=== PATIENT | male | born 1970 ===

== ENCOUNTER 2017-03-21 07:36 | Inpatient (IN) | payer SELFPAY ==
[2017-03-21] MEDS ORDERED: Sodium Chloride 0.9% 1,000 ML IV ONE (08:15)
[2017-03-21] MEDS ORDERED: DiphenhydrAMINE 50 mg/ml Inj IVP STA (08:16)
[2017-03-21] MEDS ORDERED: DiphenhydrAMINE 50 mg/ml Inj ONE (08:24)
[2017-03-21] MEDS ORDERED: Sodium Chloride 0.9% 1,000 ML ONE (08:24)
[2017-03-21 08:30] LABS: BASO % 0.5 % (0.0-2.0); EOS % 0.7 % (0.0-4.0); HEMATOCRIT 48.7 % (35.0-51.0); LYMPH # 0.6 K/uL (1.0-4.3); LYMPH % 7.8 % (20.0-40.0); MEAN CELL VOLUME 77.6 fL (80.0-94.0); MEAN CORPUSCULAR HEMOGLOBIN 25.9 pg (27.0-31.0); MEAN CORPUSCULAR HGB CONC 33.4 g/dL (33.0-37.0); MEAN PLATELET VOLUME 11.4 fL (7.2-11.7); MONO # 0.2 K/uL (0.0-0.8); MONO % 3.5 % (0.0-10.0); NRBC % 0.3 % (0.0-2.0); PLATELET COUNT 130 K/uL (130-400); RED CELL DISTRIBUTION WIDTH 15.1 % (11.5-14.5); WHITE BLOOD COUNT 7.1 K/uL (4.8-10.8)
--- NOTE | 2017-03-21 08:33 | C.PDOC ---
History Of Present Illness 46 year old male presents to ED with complaints of heroin withdrawal. Patient reports he uses 10 bags daily and last use was yesterday. He reports symptoms started late last night and reports abdominal cramping pain, vomiting, diarrhea , body aches and back pain. Patient is requesting suboxone. Time Seen by Provider: 03/21/17 08:07 Chief Complaint (Nursing): Substance Abuse History Per: Patient History/Exam Limitations: no limitations Onset/Duration Of Symptoms: Days Current Symptoms Are (Timing): Still Present Severity: Moderate Past Medical History Reviewed: Historical Data, Nursing Documentation, Vital Signs Vital Signs: Last Vital Signs Temp 98.5 F 03/21/17 11:02 Pulse 87 03/21/17 11:02 Resp 20 03/21/17 11:02 BP 154/86 H 03/21/17 11:02 Pulse Ox 97 03/21/17 11:02 Family History: States: No Known Family Hx - Social History Hx Alcohol Use: Yes Hx Substance Use: Yes - Immunization History Hx Tetanus Toxoid Vaccination: No Hx Influenza Vaccination: No Hx Pneumococcal Vaccination: No Review Of Systems Except As Marked, All Systems Reviewed And Found Negative. Constitutional: Positive for: Malaise. Negative for: Fever Cardiovascular: Negative for: Chest Pain Respiratory: Negative for: Shortness of Breath Gastrointestinal: Positive for: Vomiting, Abdominal Pain, Diarrhea Musculoskeletal: Positive for: Back Pain Physical Exam - Physical Exam Appears: Non-toxic, No Acute Distress, Other (uncomfortable, restless, tearing, anxious) Skin: Warm, Diaphoretic Head: Atraumatic, Normacephalic Eye(s): bilateral: Normal Inspection Nose: Normal Neck: Normal ROM Chest: Symmetrical Cardiovascular: Rhythm Regular Respiratory: Normal Breath Sounds, No Accessory Muscle Use, No Wheezing Gastrointestinal/Abdominal: Soft, Tenderness (nonfocal diffuse tenderness), No Distention, No Guarding Extremity: Bilateral: Atraumatic, Normal ROM Neurological/Psych: Oriented x3, Normal Speech Gait: Steady ED Course And Treatment - Laboratory Results Result Diagrams: 03/21/17 08:21 03/21/17 08:21 Lab Interpretation: No Acute Changes O2 Sat by Pulse Oximetry: 100 (room air) Pulse Ox Interpretation: Normal Medical Decision Making Medical Decision Making: Impression 46y/o M comes in w/ heroin withdrawal Plan: * Labs * Benadryl, Pepcid, Reglan, IVFs, Toradol, Zofran * Crisis Evaluation * Urinalysis Progress: 0945 As per footwear factory worker Primo after his evaluation, patient admitted suicidal thoughts without plan and has history of psychosis. 1:[address] Labs reviewed, UDS positive for opiate and cocaine. Labs ordered and reviewed. In my clinical judgment patient is medically cleared and stable for psychiatric admission. Case reviewed with Dr Michaud who accepts patient to psych unit for depressive disorder and opiate use severe. Disposition - Disposition Disposition: HOSPITALIZED Disposition Time: 10:58 Condition: FAIR - POA Present On Arrival: None - Clinical Impression Clinical Impression: Depressive disorder, Opiate abuse, continuous - PA / SENIOR CASE MANAGER / Resident Statement MD/DO has reviewed & agrees with the documentation as recorded. - Scribe Statement The provider has reviewed the documentation as recorded by the Scribe (Lion Watkins) All medical record entries made by the Scribe were at my direction and personally dictated by me. I have reviewed the chart and agree that the record accurately reflects my personal performance of the history, physical exam, medical decision making, and the department course for this patient. I have also personally directed, reviewed, and agree with the discharge instructions and disposition. Decision To Admit - Pt Status Changed To: Hospital Disposition Of: Inpatient - Admit Certification Admit to Inpatient:: After my assessment, the patient will require hospitalization for at least two midnights. This is because of the severity of symptoms shown, intensity of services needed, and/or the medical risk in this patient being treated as an outpatient. - InPatient: Physician Admission Certification: I certify that this patient requires 2 or more midnights of care for the following reason:: Case reviewed with Dr Michaud who accepts patient to psych unit for depressive disorder and opiate use severe. - . Bed Request Type: Psychiatry Admitting Physician: Dallas Michaud Patient Diagnosis: Depressive disorder, Opiate abuse, continuous
[2017-03-21 08:34] LABS: CHLORIDE 100 mmol/L (98-107)
[2017-03-21 08:35] LABS: POTASSIUM 3.7 mmol/L (3.6-5.2); SODIUM 142 mmol/L (132-148)
[2017-03-21 08:37] LABS: ALB/GLOB RATIO 1.1 (1.0-2.1); ALKALINE PHOSPHATASE 86 U/L (38-126); AST/SGOT 28 U/L (17-59); BILIRUBIN,TOTAL 1.1 mg/dL (0.2-1.3); BLOOD UREA NITROGEN 16 mg/dL (9-20); CARBON DIOXIDE 24 mmol/L (22-30); GFR AFRICAN-AMERICAN > 60; TOTAL PROTEIN 9.1 g/dL (6.3-8.3)
[2017-03-21 08:38] LABS: ALCOHOL SERUM < 10 mg/dl (0-10); ALT/SGPT 35 U/L (21-72); CALCIUM 10.1 mg/dl (8.6-10.4); GLUCOSE,RANDOM 151 mg/dL (75-110)
[2017-03-21 08:51] LABS: NEUTROPHIL 87 % (50-75); TOTAL CELLS COUNTED 100
[2017-03-21 10:06] LABS: RBC URINE 2 /hpf (0-3); URINE BILIRUBIN NEGATIVE (NEGATIVE); URINE BLOOD NEGATIVE (NEGATIVE); URINE COLOR Yellow (YELLOW); URINE GLUCOSE (UA) NORMAL (Normal); URINE KETONE 2+ mg/dL (NEGATIVE); URINE LEUKOCYTE ESTERASE NEG Leu/uL (Negative); URINE PROTEIN 1+ mg/dL (NEGATIVE); URINE UROBILINOGEN NORMAL mg/dL (0.2-1.0); WBC URINE 1 /hpf (0-5)
[2017-03-21] MEDS ORDERED: Aluminum Hydroxide/Magnesium Hydroxide Susp (30 mL) PO PRN (11:24)
--- NOTE | 2017-03-21 13:48 | PCM.PSYCH ---
Initial Psychiatric Evaluation - Initial Psychiatric Evaluation Type of Admission: Voluntary Legal Status: Capacity Chief Complaint (in patient's own words): "Withdrawing" History of Present Illness and Precipitating Events: The patient is seen, chart reviewed and case discussed. He is a very poor historian and due to withdrawal he was somewhat uncooperative. This is a 49-year-old -[place] male, single with no child, currently homeless and unemployed. The patient reports depressive symptoms for several weeks coupled with auditory hallucinations telling him to hurt himself. He also feels paranoid. No homicidal ideation and he contracts for safety regarding suicidal at this point. He admits to using heroin up to 20 bags intranasally, on and off for 20 years. He had one detox but no rehabilitation and no methadone/Suboxone. He also uses cocaine by smoking for the last 15 years. He claims he is using "a lot of" Xanax and alcohol. He would not elaborate much. However, he claims he had a seizure when withdrawing. He is a smoker. Denies other drugs. His urine is positive for opiates and cocaine. Past psych history: Depression in the past. No admission or treatment. He claims seen for detox intentionally 10 years ago. Family psych history: Mother had psych issues. Medical history: Hypertension. Social history: As above. He says he is on probation or use again, he wouldn't elaborate. Current Medications: Active Medications Generic Name Dose Route Start Last Admin Trade Name Freq PRN Reason Stop Dose Admin Al Hydrox/Mg Hydrox/Simethicone 30 ml 03/21/17 11:24 Maalox 30 Ml PO TID PRN Indigestion / Heartburn Chlordiazepoxide 0 mg 03/21/17 18:00 Librium PO 03/25/17 17:59 Q6 GINNY Taper Chlordiazepoxide 25 mg 03/21/17 13:41 Librium PO Q4H PRN Alcohol Withdrawal Clonidine HCl 0.1 mg 03/21/17 11:24 Catapres PO Q8 PRN COWS Score More or Equal to 5 Dicyclomine HCl 10 mg 03/21/17 11:25 Bentyl PO Q6H PRN spasms Folic Acid 1 mg 03/21/17 13:45 Folic Acid PO DAILY GINNY Gabapentin 300 mg 03/21/17 14:00 Neurontin PO TID GINNY Haloperidol 5 mg 03/21/17 13:44 Haldol PO Q1H PRN severe agitation max 4x/24h Hydroxyzine HCl 50 mg 03/21/17 11:25 Atarax PO Q6H PRN Anxiety Ibuprofen 600 mg 03/21/17 11:25 Motrin Tab PO Q6H PRN Pain, moderate (4-7) Loperamide HCl 2 mg 03/21/17 11:24 Imodium PO Q8 PRN Diarrhea Lorazepam 1 mg 03/21/17 11:26 Ativan PO Q6H PRN Agitation Multivitamins 1 tab 03/21/17 13:45 Hexavitamin PO DAILY GINNY Ondansetron HCl 4 mg 03/21/17 11:24 Zofran Tab PO Q8 PRN Nausea/Vomiting Pneumococcal Polyvalent Vaccine 0.5 ml 03/23/17 10:00 Pneumovax 23 Vaccine IM 03/23/17 10:01 .ONCE ONE Promethazine HCl 25 mg 03/21/17 11:24 Phenergan Inj IM QID PRN Nausea/Vomiting, Unable PO Thiamine HCl 100 mg 03/21/17 13:45 Vitamin B1 Tab PO DAILY GINNY Trazodone HCl 100 mg 03/21/17 22:00 Desyrel PO HS GINNY Past Psychiatric History - Past Psychiatric History Previous Treatment History: None Pertinent Medical Hx (Current Medical&Sleep Prob, Allergies): Allergies Allergy/AdvReac Type Severity Reaction Status Date / Time No Known Allergies Allergy Verified 03/21/17 07:44 No Known Home Med 03/21/17 Review of Systems - Neurological Neurological: UNREMARKABLE - Psychiatric Psychiatric: Abnormal Sleep Pattern, Anhedonia, Anxiety, Change in Appetite, Depression, Difficulty Concentrating, Hallucinations, Irritability, Mood Swings , Paranoia, Suicidal Ideation (contracts for safety and will follow safety plan) . absent: Homicidal Ideation Mental Status Examination - Personal Presentation Personal Presentation: Looks older than stated age - Affect Affect: Blunted - Motor Activity Motor Activity: Calm - Reliability in Providing Information Reliability in Providing Information: Fair - Speech Speech: Organized - Mood Mood: Depressed, Anxious - Formal Thought Process Formal Thought Process: Hallucinations, Paranoia - Cognitive Functions Orientation: Person, Place, Situation, Time Sensorium: Drowsy Attention/Concentration: Easily distracted Estimate of Intelligence: Below average Judgement: Intact, as evidence by: Insight regarding need for hospitalization Memory: Recent impaired, as evidence by: Inability to recall events of the day, Remote impaired as evidenced by: Inability to recall sig life events - Risk Risk: Withdrawal, Diminished functioning - Strength & Assets Inventory Strength & Assets Inventory: Life experience, Cooperative - Limitations Limitations: Living alone DSM 5 DX - DSM 5 DSM 5 Diagnosis: Major depression, single, severe with psychosis Opioid withdrawal Opioid use d/o - severe Sedative, 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 Alcohol use d/o - unspecified Cocaine use d/o - severe Tobacco use d/o - severe - Recommended/Plan of Treatment Treatment Recommendations and Plan of Treatment: Depression: Zoloft Attend groups and activities CBT and support Opioids: Methadone detox As needed meds Attend groups and activities [place] for abstinence and CBT for relapse prevention Support and psychoeducation Consider and encourage MAT Refer to after care at rehab or IOP Cocaine: Gabapentin Attend groups and activities [place] for abstinence and CBT for relapse prevention Support and psychoeducation Alcohol/benzo: Librium detox Gabapentin for augmentation As needed meds and vitamins Attend groups and activities [place] for abstinence and CBT for relapse prevention Support and psychoeducation Consider and encourage MAT Refer to after care at rehab or IOP 33 min Projected ELOS: 7 days Prognosis: Good w treatment Discharge Plan and Discharge Criteria: criteria: No SI, AVH and no severe dep sxs Refer to MAT and IOp or rehab - Smoking Cessation Smoking Cessation Initiated: Yes
[2017-03-21] MEDS: Multiple Vitamins Tab PO SCH (14:06)
[2017-03-22] MEDS: Multiple Vitamins Tab PO SCH (09:49)
--- NOTE | 2017-03-22 17:51 | PCM.PYCHPN ---
Psychiatric Progress Note - Psychiatric Progress Note Patient seen today, length of contact: 16 min Patient Chief Complaint: "A little better" Problems Identified/Issues Discussed: The pt is seen, chart reviewed, case discussed with staff. The pt is compliant with medications and reports no side-effects. Symptoms are improving but needs more time to stabilize. The wild wdw picture all but stopped After care discussed, interested in rehab but also open to IOP Support and psychoeducation given. Medication Change: Yes (detox changes daily) Medical Record Reviewed: Yes Mental Status Examination - Cognitive Function Orientation: Person, Place, Situation, Time Memory: Intact Attention: WNL Concentration: Poor Association: WNL Fund of Knowledge: Poor - Mood Mood: Depressed, Anxious - Affect Affect: Constricted - Speech Speech: Appropriate, Soft - Formal Thought Process Formal Thought Process: Paranoia (mild) - Suicidal Ideation Suicidal Ideation: No - Homicidal Ideation Homicidal Ideation: No Goal/Treatment Plan - Goal/Treatment Plan Need for Continued Stay: Discharge may exacerbated symptoms, Severe functional impairment Progress Toward Problem(s) and Goals/Treatment Plan: Depression: Zoloft Attend groups and activities CBT and support Opioids: Methadone detox As needed meds Attend groups and activities [place] for abstinence and CBT for relapse prevention Support and psychoeducation Consider and encourage MAT Refer to after care at rehab or IOP Cocaine: Gabapentin Attend groups and activities [place] for abstinence and CBT for relapse prevention Support and psychoeducation Alcohol/benzo: Librium detox Gabapentin for augmentation As needed meds and vitamins Attend groups and activities [place] for abstinence and CBT for relapse prevention Support and psychoeducation Consider and encourage MAT Refer to after care at rehab or IOP Estimated Date of D/C: 03/27/17
[2017-03-23] MEDS ORDERED: Pneumococcal 23-Valent Vaccine IM ONE (10:00)
[2017-03-23] MEDS: Multiple Vitamins Tab PO SCH (10:19)
[2017-03-24 07:01] VITALS: O2SAT 100
[2017-03-24] MEDS: Multiple Vitamins Tab PO SCH (09:33)
--- NOTE | 2017-03-25 00:04 | PCM.PYCHPN ---
Psychiatric Progress Note - Psychiatric Progress Note Patient seen today, length of contact: 15 MIN Patient Chief Complaint: J'M STARTING TO FEEL BETTER Problems Identified/Issues Discussed: PAWS SYMPTOM MANAGEMENT TRIGGERS Medical Problems: NOTHING ACUTE Diagnostic Results: REVIEWED DSM 5 Symptoms Update: INSOMNIA Medication Change: Yes (detox changes daily) Medical Record Reviewed: Yes Mental Status Examination - Cognitive Function Orientation: Person, Situation, Time Memory: Intact Attention: WNL Concentration: Poor Association: WNL Fund of Knowledge: Poor - Mood Mood: Depressed, Anxious - Affect Affect: Constricted - Speech Speech: Appropriate, Soft - Formal Thought Process Formal Thought Process: Paranoia (mild) - Suicidal Ideation Suicidal Ideation: No - Homicidal Ideation Homicidal Ideation: No Goal/Treatment Plan - Goal/Treatment Plan Need for Continued Stay: Remain at risks for inpatient hospitalization, Discharge may exacerbated symptoms, Severe functional impairment Progress Toward Problem(s) and Goals/Treatment Plan: MDD - CONTINUE ZOLOFT OPIATE WITHDRAWAL METHADONE TAPER OPIATE USE DISORDER CBT SD GROUPS Estimated Date of D/C: 03/27/17 - Smoking Cessation Smoking Cessation Initiated: Yes
--- NOTE | 2017-03-25 02:28 | PCM.PYCHPN ---
Psychiatric Progress Note - Psychiatric Progress Note Patient seen today, length of contact: 15 MIN Patient Chief Complaint: I FEEL BETTER THAN YESTERDAY Problems Identified/Issues Discussed: PAWS AFTERCARE Medical Problems: NOTHING ACUTE Diagnostic Results: REVIEWED DSM 5 Symptoms Update: ANERGY Medication Change: No Medical Record Reviewed: Yes Mental Status Examination - Cognitive Function Orientation: Person, Place, Situation, Time Memory: Intact Attention: WNL Concentration: WNL Association: WNL Fund of Knowledge: WNL - Mood Mood: Depressed, Anxious - Affect Affect: Constricted - Speech Speech: Appropriate - Formal Thought Process Formal Thought Process: No Impairment - Suicidal Ideation Suicidal Ideation: No - Homicidal Ideation Homicidal Ideation: No Goal/Treatment Plan - Goal/Treatment Plan Need for Continued Stay: Discharge may exacerbated symptoms, Severe functional impairment Progress Toward Problem(s) and Goals/Treatment Plan: MDD - CONTINUE MD CBT OPIATE WITHDRAWAL METHADONE TAPER OPIATE USE DISORDER SUPPORT PSYCHOTHERAPY Estimated Date of D/C: 03/27/17 - Smoking Cessation Smoking Cessation Initiated: No
[2017-03-25] MEDS: Multiple Vitamins Tab PO SCH (09:58)
--- NOTE | 2017-03-25 13:52 | PCM.PYCHPN ---
Psychiatric Progress Note - Psychiatric Progress Note Patient seen today, length of contact: 16 min Patient Chief Complaint: "Nothing" Problems Identified/Issues Discussed: The pt is seen, chart reviewed, case discussed with staff. Support given, CBT and [place] used briefly No new symptoms reported, improving slowly and needs some more time No SEs from medications, risks discussed. After care discussed Medication Change: No Medical Record Reviewed: Yes Mental Status Examination - Cognitive Function Orientation: Person, Place, Situation, Time Memory: Intact Attention: WNL Concentration: WNL Association: WNL Fund of Knowledge: WNL - Mood Mood: Depressed, Anxious - Affect Affect: Constricted - Speech Speech: Appropriate - Formal Thought Process Formal Thought Process: No Impairment - Suicidal Ideation Suicidal Ideation: No - Homicidal Ideation Homicidal Ideation: No Goal/Treatment Plan - Goal/Treatment Plan Need for Continued Stay: Discharge may exacerbated symptoms, Severe functional impairment Progress Toward Problem(s) and Goals/Treatment Plan: Depression: Zoloft Attend groups and activities CBT and support Opioids: Methadone detox As needed meds Attend groups and activities [place] for abstinence and CBT for relapse prevention Support and psychoeducation Consider and encourage MAT Refer to after care at rehab or IOP Cocaine: Gabapentin Attend groups and activities [place] for abstinence and CBT for relapse prevention Support and psychoeducation Alcohol/benzo: Librium detox Gabapentin for augmentation As needed meds and vitamins Attend groups and activities [place] for abstinence and CBT for relapse prevention Support and psychoeducation Consider and encourage MAT Refer to after care at rehab or IOP Estimated Date of D/C: 03/27/17
[2017-03-26] MEDS: Multiple Vitamins Tab PO SCH (10:28)
[2017-03-27 07:39] VITALS: BP 139/88; PULSE 69; RESP 20; TEMP 97.5
--- NOTE | 2017-03-27 09:46 | PCM.PYCHPN ---
Psychiatric Progress Note - Psychiatric Progress Note Patient seen today, length of contact: 16 min Medication Change: No Medical Record Reviewed: Yes Mental Status Examination - Cognitive Function Orientation: Person, Place, Situation, Time Memory: Intact Attention: WNL Concentration: WNL Association: WNL Fund of Knowledge: WNL - Mood Mood: Depressed, Anxious - Affect Affect: Constricted - Speech Speech: Appropriate - Formal Thought Process Formal Thought Process: No Impairment - Suicidal Ideation Suicidal Ideation: No - Homicidal Ideation Homicidal Ideation: No Goal/Treatment Plan - Goal/Treatment Plan Need for Continued Stay: Discharge may exacerbated symptoms, Severe functional impairment Estimated Date of D/C: 03/27/17
--- NOTE | 2017-03-27 09:49 | PCM.PYCHDC ---
Mental Status Examination - Mental Status Examination Orientation: Person, Place, Situation, Time Memory: Intact Mood: Neutral Affect: Constricted Speech: Soft Attention: WNL Concentration: WNL Association: WNL Fund of Knowledge: WNL Formal Thought Process: No Impairment Description of patient's judgement and insight: good, fair Psychotic Thoughts and Behaviors: denies any AVH Suicidal Ideation: No Current Homicidal Ideation?: No Discharge Summary - Discharge Note Reason for Hospitalization: This is a 49-year-old -[place] male, single with no child, currently homeless and unemployed. The patient reports depressive symptoms for several weeks coupled with auditory hallucinations telling him to hurt himself. He also feels paranoid. No homicidal ideation and he contracts for safety regarding suicidal at this point. He admits to using heroin up to 20 bags intranasally, on and off for 20 years. He had one detox but no rehabilitation and no methadone/Suboxone. He also uses cocaine by smoking for the last 15 years. He claims he is using "a lot of" Xanax and alcohol. He would not elaborate much. However, he claims he had a seizure when withdrawing. He is a smoker. Denies other drugs. His urine is positive for opiates and cocaine. Past psych history: Depression in the past. No admission or treatment. He claims seen for detox intentionally 10 years ago. Consultations:: List each consultation separately and include: 1. Reason for request. 2. Findings. 3. Follow-up Summary of Hospital Course include:: 1. Description of specific treatment plan utilized for patients during their course of treatmen. 2. Summarize the time- course for resolution of acute symptoms and/or regressed behaviors. 3. Describe issues identified and worked on during hospitalization. 4. Describe medication utilized. 5. Describe medical problems identified and treated. 6. Reassessment of suicide risk Summary of Hospital Course: During the course of his stay, patient (pt) started progressively improving and he no longer remained irritable, depressed, and suicidal. His mood was improved and he started attending groups and meetings and started socializing. Patient denied any feelings of hopelessness, helplessness, and worthlessness, denied any problem with the sleep or appetite, denied suicidal ideation or homicidal ideation. Pt denied any auditory or visual hallucinations. Some changes were made in his current medications and patient was discharged on following medications. He tolerated these medications very well and denied any side effects. CBT and [place] were used. Pt is going to attend [facility]. 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 Pt was educated and counseled about the risks of drinking and abusing drugs. Pt was educated and counseled to go to the ER or call 911 if pt develop suicidal ideation or homicidal ideation, worsening of symptoms or severe side effects of the meds. Prescriptions/Medication Reconciliation: amLODIPine [Norvasc] 10 mg PO DAILY #30 tab Gabapentin [Neurontin] 300 mg PO TID #90 cap Haloperidol [Haldol] 5 mg PO QPM #30 tab Propranolol [Inderal] 20 mg PO TID #90 tab Sertraline [Zoloft] 50 mg PO DAILY #30 tab traZODone [Desyrel] 100 mg PO HS #30 tab - Smoking Cessation Smoking Cessation Medication prescribed: No - Antipsychotic Medications Pt discharged on 2 or more routine antipsychotic medications: No
[2017-03-27] MEDS: Multiple Vitamins Tab PO SCH (10:12)
== END 2017-03-27 11:20 | disposition home or self-care (01) | DRG 895 ==
LOC: C.ER 07:36 → C.9E 10:59 → C.5E 11:45
PROVIDERS: ADMIT Psychiatry & Neurology Psychiatry; ATTEND Psychiatry & Neurology Psychiatry
PROC: HZ2ZZZZ Detoxification Services for Substance Abuse Treatment (ICD-10-PCS; principal; 2017-03-21)
PROC: HZ52ZZZ Individual Psychotherapy for Substance Abuse Treatment, Cognitive-Behavioral (ICD-10-PCS; 2017-03-21)
PROC: HZ42ZZZ Group Counseling for Substance Abuse Treatment, Cognitive-Behavioral (ICD-10-PCS; 2017-03-21)
PROC: HZ59ZZZ Individual Psychotherapy for Substance Abuse Treatment, Supportive (ICD-10-PCS; 2017-03-21)
PROC: HZ56ZZZ Individual Psychotherapy for Substance Abuse Treatment, Psychoeducation (ICD-10-PCS; 2017-03-21)
PROC: HZ46ZZZ Group Counseling for Substance Abuse Treatment, Psychoeducation (ICD-10-PCS; 2017-03-21)
DX: F11.23 Opioid dependence with withdrawal (principal); F10.230 Alcohol dependence with withdrawal, uncomplicated; F32.3 Major depressive disorder, single episode, severe with psychotic features; F14.10 Cocaine abuse, uncomplicated; F13.10 Sedative, hypnotic or anxiolytic abuse, uncomplicated; F17.210 Nicotine dependence, cigarettes, uncomplicated; Y90.0 Blood alcohol level of less than 20 mg/100 ml; G47.00 Insomnia, unspecified; Z59.0 Homelessness